=== PATIENT | female | born 2000 | race Caucasian/White ===

== ENCOUNTER → 2025-03-12 10:45 | Outpatient (REF) | payer OTHER, SELFPAY ==
[2025-03-12 12:39] LABS: Hepatitis B Surface Antibody Negative
[2025-03-14 06:55] LABS: Quantiferon Mitogen minus NIL 9.94 IU/mL; Quantiferon NIL 0.06 IU/mL; Quantiferon Plus TB1 minus NIL 0.01 IU/mL (<=0.34); Quantiferon Plus TB2 minus NIL 0.01 IU/mL (<=0.34); Quantiferon TB Gold Plus Negative (Negative)
== END ==
LOC: OHS 10:45
PROVIDERS: ATTENDING PHYSICIAN Nurse Practitioner Family
DX: Z23 Encounter for immunization (principal)
CPT/HCPCS: 36415; 86480; 86706

== ENCOUNTER 2025-11-14 05:02 | Emergency (ER) | payer OTHER, SELFPAY ==
[2025-11-14 05:04] VITALS: BP 129/83
[2025-11-14 06:15] LABS: ALT (SGPT) 12 U/L (0-35); AST (SGOT) 20 U/L (14-36); Albumin 4.5 g/dl (3.5-5.0); Alkaline Phosphatase 67 U/L (38-126); Total Protein 7.3 g/dl (6.3-8.2)
[2025-11-14 06:27] LABS: HCG, Serum Qualitative Screen Negative
--- NOTE | 2025-11-14 06:47 | ED.GENMED ---
History of Present Illness
General
Chief Complaint: Blood and Body Fluid Exposure
Source: patient
Exam Limitations: none
Time Seen by Provider: 11/14/25 05:12
Nursing documentation reviewed up to this point in time: agreed with
History of Present Illness
History of Present Illness:
25-year-old female no significant past medical history
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 Patient is not known to be HIV positive but will be tested.
Patient had a small drop of her old blood on her left ring finger, she irrigated this out.
There is no other concerns
Patient's tetanus is up-to-date
Review of Systems
Review of Systems
Allergies reviewed?: Yes
All Other Systems: Not applicable
Phy Exam
Physical Exam
Physical Exam:
GENERAL: Alert , in no apparent distress, comfortable at rest
HEAD: NCAT
CV: Cap refill intact
SKIN: Warm and dry small puncture wound is closed
MUSCULOSKELETAL: Full range of motion of the finger;
PSYCH: Normal and appropriate interaction.
Course
Orders/Labs/Results
Orders:
Orders
11/14/25 05:12
Pt has had a significant HIV exposure? Routine
HIV Exposure is significant?: Yes
11/14/25 05:20
HCG, Serum Qualitative Screen Urgent
HIV Combo Urgent
Hepatitis B Surface Antibody Urgent
Hepatitis B Surface Antigen Urgent
Hepatitis C Antibody Urgent
LFT [Ivhke-Iymn-Fthwelr] Urgent
11/14/25 06:02
Add On- LAB Urgent
Tests Added?: hcg qualitative
Vital Signs
Initial and Last Documented VS:
Initial Vital Signs
Temp Pulse Resp BP Pulse Ox
37.0 C 83 14 129/83 100
11/14/25 05:04 11/14/25 05:04 11/14/25 05:04 11/14/25 05:04 11/14/25 05:04
Last Documented Vital Signs
Temp Pulse Resp BP Pulse Ox
37.0 C 83 14 129/83 100
11/14/25 05:04 11/14/25 05:04 11/14/25 05:04 11/14/25 05:04 11/14/25 05:04
MDM/Problems Addressed
Differential Diagnosis Includes:
Needlestick
MDM/Problems Addressed:
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 The patient does not have HIV that is known. She will be tested. The patient screening labs are drawn. She
irrigated the wound which was minimal if any.
Tetanus up-to-date. Given that the sourcepatient is
Low risk for HIV and the source patient can be tested Patient declined PEP
Follow-up with employee
*Pulse Oximetry
SaO2: 100
Oxygen Mode of Delivery: Room air
Patient hypoxic: no (100)
*Critical Care Note
Total Time (30-74mins, 75-104mins- exclusive of procedures): Not Applicable
ED Attending Note
-
Portions of this chart may have been created with voice recognition software.� Occasional wrong word or��sound alike� substitutions may have occurred due to the inherent limitations of voice recognition software.
Discharge Plan
Departure
Patient Disposition: Home (Routine Discharge)
Date of Disposition: 11/14/25
Time of Disposition: 06:30
Patient with high blood pressure during this ER visit?: No
Condition: Fair
Covid-19: Not Applicable
Discharge Problem:
Needlestick injury accident
Instructions: Exposure to HIV or hepatitis through blood or body fluids
Referrals:
Bev Vazquez MD, Resident [Family Provider, General]
Stand Alone Forms: Bl/Fluid Consent/Declination, Blood Body/Fluid Exposure
Activity Restrictions/Additional Instructions:
You were tested for HIV and hepatitis. Please follow-up with employee health.
We discussed prophylaxis for HIV at this time We did not initiate it. Return for any concerns
Interventions
Interventions:
*General Assessment Last Done: 11/14/25 06:45
*Neglect/Abuse Screening Last Done: 11/14/25 06:45
*ED COVID-19 Vaccine History Last Done: 11/14/25 06:45
*ED Influenza Vaccine History Last Done: 11/14/25 06:45
*Risk Screen - Suicide (C-SSRS) Last Done: 11/14/25 05:04
ED-EENT Assessment Last Done: 11/14/25 06:45
ED-Skin Assessment Last Done: 11/14/25 06:45
Discharge Date and Time
Print Language: DIVEHI
[2025-11-14 18:49] LABS: Hepatitis B Surface Antigen Negative (Negative)
[2025-11-14 19:07] LABS: Hepatitis C Antibody Negative (Negative)
== END 2025-11-14 06:51 | disposition home or self-care (01) ==
LOC: EMR 05:02
PROVIDERS: Physician Assistant; EMERGENCY PHYSICIAN Emergency Medicine
DX: Z77.21 Contact with and (suspected) exposure to potentially hazardous body fluids (principal); Y99.0 Civilian activity done for income or pay
CPT/HCPCS: 99283; 80076; 84703; 86706; 86803; 87340; 87389